=== PATIENT | female | born 1990 ===

== ENCOUNTER 2021-08-23 11:15 | Inpatient (IN) | payer OTHER ==
[~2021-08-23] VITALS: Ht 157.5 cm; Wt 88.9 kg
[2021-08-27] MEDS ORDERED: FE C TABLET1 EACH PO (19:23)
[2021-08-27] MEDS ORDERED: PRENATABS RX T1 EACH PO (19:23)
[2021-08-28] MEDS ORDERED: ST. JOSEPH ASPI81 M2 (10:15)
== END 2021-08-30 16:27 | disposition home or self-care (01) | DRG 807 ==
LOC: LDR 08-27 19:01 → OB/GYN 08-27 19:01 → SURH 09-01 11:15
PROVIDERS: ADMIT Obstetrics & Gynecology; ATTEND Obstetrics & Gynecology
PROC: 10E0XZZ Delivery of Products of Conception, External Approach (ICD-10-PCS; principal; 2021-08-28)
PROC: 0KQM0ZZ Repair Perineum Muscle, Open Approach (ICD-10-PCS; 2021-08-28)
PROC: 4A1HXFZ Monitoring of Products of Conception, Cardiac Rhythm, External Approach (ICD-10-PCS; 2021-08-28)
DX: O70.1 Second degree perineal laceration during delivery (principal); Z37.0 Single live birth; Z3A.39 39 weeks gestation of pregnancy